=== PATIENT | male | born 1960 | race Caucasian/White ===

== ENCOUNTER 2016-11-21 09:16 | Day surgery (SDC) | payer BC, OTHER ==
[~2016-11-21 09:16] MED LIST: RINGER'S SOLUTION,LACTATED 1,000 ML IV PRN; ceFAZolin SODIUM 2 GM in DEXTROSE 5 % IN WATER 50 ML IV PRN
[2016-11-21] MEDS ORDERED: BUPIVACAINE HCL/EPINEPHRINE 50 ML VIAL IJ ONE ×2 (11:20)
[2016-11-21] MEDS ORDERED: RINGER'S SOLUTION,LACTATED 1,000 ML IV ONE (12:14)
[2016-11-21] MEDS ORDERED: RINGER'S SOLUTION,LACTATED 1,000 ML IV PRN (12:46)
[2016-11-21] MEDS ORDERED: oxyCODONE HCL/ACETAMINOPHEN 1 TAB TABLET PO ONE ×2 (12:46→14:15)
[2016-11-21 15:48] VITALS: BP 134/88
--- NOTE | 2016-11-21 19:49 | OR ---
Operative Report - Dictated Report Narrative: OPERATIVE REPORT DATE OF OPERATION: 11/21/2016 PREOPERATIVE DIAGNOSIS: Incarcerated Umbilical hernia POSTOPERATIVE DIAGNOSIS: Incarcerated Umbilical hernia containing 8 x 10 cm of herniated omentum with a 2 cm fascial defect OPERATION: Reduction and repair of incarcerated umbilical hernia and excision of incarcerated omentum. (Ventralex hernia patch) SURGEON: Radha Huang MD ANESTHESIA: GenRobyn Mcpherson CRNA INDICATIONS FOR PROCEDURE: The patient is a 56-year-old male referred by Dr. Shahid. He has had an incarcerated umbilical hernia for approximately 7 years. FINDINGS: 8 x 10 cm incarcerated omentum with 2 cm fascial defect NARRATIVE OF PROCEDURE: The patient was identified preoperatively and prior to the administration of anesthetic a multidisciplinary timeout was observed. The patient was placed supine, SCDs were applied, 2 g of intravenous Ancef administered, and general endotracheal anesthetic administered. The patient's abdomen was prepped with Betadine solution and the area around the umbilicus isolated with 4 sterile towels. The remainder of the patient was covered with a sterile disposable drape. A curving supraumbilical skin incision was made. Dissection was carried in the subcutaneous tissue with electrocautery until a sac containing herniated omentum was encountered. The sac was dissected free from the surrounding subcutaneous tissue down to the fascial defect on all margins. The sac was then opened. The omentum was released from adhesions to the interior of the sac, however due to the large size and chronicity of the incarceration the fat could not be reduced through the defect. Accordingly the omentum was crossclamped and divided in 3 sections which were secured with 0 chromic ties. The stump of the omentum was observed to be hemostatic. The stump then fell freely into the abdominal cavity. The visible underlying omentum appeared normal. Digital palpation of the undersurface of the surrounding anterior abdominal wall revealed no additional defects or local adhesions. A medium Ventralex hernia patch was then placed through the defect and unfurled completely within the abdomen. The wings of the patch were then used to pull the patch snug against the anterior abdominal wall. The wings of the patch were then secured above and below the defect with interrupted sutures of 0 Ethibond. Additional 0 Ethibond sutures were placed through the wings of the patch and around the margins of the defect. The repair appeared sound. After receiving a correct sponge needle and instrument count attention was turned to closing the wound. Subcutaneous space was obliterated with interrupted sutures of 0 Ethibond. The skin was secured with a running subcuticular suture of 4-0 Vicryl. The operative site was washed and dried. A dressing of Dermabond, folded 2 x 2, and Medipore tape was applied. The operative procedure was terminated at this point. The patient tolerated the anesthetic and procedure well without complication. There was no measurable blood loss. The hernia sac and amputated omentum were submitted to pathology. 0.5% Marcaine with epinephrine was used for local anesthetic infiltration. The patient was transferred to the recovery room awake, extubated, and in stable condition. The patient remained stable throughout a period of postoperative observation. His pain was controlled with po Percocet, he was able to tolerate a general diet , and was up without assistance. I shared the operative findings with him and his . He was discharged home with instructions not to lift and not to drive. He is to keep the current dressing dry and intact for 48 hours but then may shower and change the dressing daily or as needed. He is to resume those medications as listed on the history and physical exam. He was given a prescription for Percocet 5/325 mg 1-2 po Q4-6 hrs prn pain. He has phone numbers to call if needed for uncontrolled pain or signs of bleeding or wound infection. A return office appointment was made for next week for wound inspection. Reviewed and electronically signed
== END 2016-11-21 09:17 | disposition home or self-care (01) ==
LOC: AMB 09:16
PROVIDERS: ATTEND Surgery
PROC: 0WUF0JZ Supplement Abdominal Wall with Synthetic Substitute, Open Approach (ICD-10-PCS; principal; 2016-11-21 10:15)
DX: K42.0 Umbilical hernia with obstruction, without gangrene (principal); I10 Essential (primary) hypertension; M10.9 Gout, unspecified; Z68.36 Body mass index [BMI] 36.0-36.9, adult